=== PATIENT | female | born 1995 | race Caucasian/White ===

== ENCOUNTER → 2025-03-16 | Outpatient (CLI) | payer OTHER ==
[2025-03-16 13:49] VITALS: TEMP 97.9
[2025-03-16 15:26] LABS: APPEARANCE, CSF CLEAR (CLEAR); COLOR, CSF COLORLESS (COLORLESS); CSF TUBE# CELL CNT TUBE 1
[2025-03-16 15:32] LABS: CSF TUBE# TP TUBE 1; TOTAL PROTEIN,CSF 34.8 MG/DL (15-45)
[2025-03-16 15:34] LABS: CSF TUBE# GLU TUBE 1; GLUCOSE CSF 68.0 MG/DL (40-70)
[2025-03-16 16:40] VITALS: BP 135/86; O2SAT 99
== END ==
LOC: M IRPRO 13:32
PROVIDERS: ATTEND Psychiatry & Neurology Neurology
DX: G93.2 Benign intracranial hypertension (principal)

== ENCOUNTER 2025-03-19 10:04 | Emergency (ER) | payer OTHER ==
[~2025-03-19] VITALS: Ht 157.5 cm; Wt 110.4 kg
[2025-03-19] MEDS ORDERED: TOPI-256 (10:24)
[2025-03-19] MEDS ORDERED: METF500T13 (10:24)
[2025-03-19] MEDS: FIORICET TAB PO ONE (13:22)
[2025-03-19] MEDS: NS (Normal Saline) 0.9% 1,000 ML IV ONE (13:22)
[2025-03-19] MEDS: ONDANSETRON 4MG 2ML VIAL IV ONE (13:23)
[2025-03-19 13:55] VITALS: BP 121/76; TEMP 97.7; O2SAT 99
== END 2025-03-19 14:18 | disposition home or self-care (01) ==
LOC: M ED 11:23
DX: G97.1 Other reaction to spinal and lumbar puncture (principal); R51.9 Headache, unspecified; Z79.899 Other long term (current) drug therapy
CPT/HCPCS: 96374; 99284; J2405

== ENCOUNTER → 2025-03-19 | Outpatient (CLI) | payer OTHER ==
[~2025-03-19] MED LIST: METF500T13; TOPI-256
[2025-03-19 15:10] VITALS: BP 129/70; TEMP 97.7; O2SAT 100
== END ==
LOC: M OPP 14:03
PROVIDERS: ATTEND Anesthesiology
DX: R51.9 Headache, unspecified (principal); Z79.84 Long term (current) use of oral hypoglycemic drugs; Z79.899 Other long term (current) drug therapy